=== PATIENT | male | born 1995 | race Caucasian/White ===

== ENCOUNTER 2023-05-27 17:11 | Emergency (ER) | payer OTHER ==
[~2023-05-27] VITALS: Ht 177.8 cm; Wt 63.5 kg
[2023-05-27 17:35] VITALS: BP 111/72
[2023-05-27 17:46] VITALS: BP 111/72
== END 2023-05-27 17:50 | DRG 923 ==
LOC: ED 17:11
DX: Z04.1 Encounter for examination and observation following transport accident (principal)